=== PATIENT | female | born 1990 | race African-American/Black ===

== ENCOUNTER 2017-05-16 18:00 | Emergency (ER) | payer OTHER ==
[~2017-05-16] VITALS: Ht 162.6 cm; Wt 100.0 kg
[~2017-05-16 18:00] MED LIST: TRAM50TA2 PO
[2017-05-16 18:20] VITALS: BP 135/70
[2017-05-16 19:10] LABS: ASPARTATE AMINO TRANSFERASE 11 U/L (15-37); BLOOD UREA NITROGEN 13 mg/dL (7-18)
== END 2017-05-16 19:45 | disposition home or self-care (01) ==
LOC: ED 19:39
DX: R10.13 Epigastric pain (principal)
CPT/HCPCS: 36415; 80053; 83690; 84703; 85025; 99284

== ENCOUNTER 2018-03-25 21:00 | Outpatient (CLI) | payer OTHER ==
[~2018-03-25] VITALS: Ht 162.6 cm; Wt 110.9 kg
[2018-03-25 21:19] VITALS: BP 124/69
[2018-03-25 21:25] LABS: MICROSCOPIC INDICATED
== END 2018-03-25 22:09 | disposition home or self-care (01) ==
LOC: LDOP 21:00
PROVIDERS: ATTEND Obstetrics & Gynecology
DX: O26.893 Other specified pregnancy related conditions, third trimester (principal); R10.9 Unspecified abdominal pain; Z3A.39 39 weeks gestation of pregnancy
CPT/HCPCS: 59025; 81001; 87086; 99211; G0463